=== PATIENT | female | born 1970 | race Caucasian/White ===

== ENCOUNTER 2017-03-08 23:27 | Emergency (ER) | payer OTHER ==
[2017-03-09 00:55] VITALS: BP 120/76
[2017-03-09] MEDS ORDERED: Acetaminophen TAB* 325 MG PO ONE (02:24)
--- NOTE | 2017-03-09 02:25 | ED ---
Lower Extremity - HPI Summary HPI Summary: Rolled Rt anle while walking down stiars - heard pop -has bruising and swelling. Sprained before - no n/t/w - worse w/ movement and weiht bearig, Tried 400mg ibuprofen prior to arrical, better w/ rest and eevaation. - History of Current Complaint Chief Complaint: EDExtremityLower Stated Complaint: RT ANKLE INJURY Time Seen by Provider: 03/09/17 00:58 Hx Obtained From: Patient Pain Intensity: 7 - Allergies/Home Medications Allergies/Adverse Reactions: Allergies Allergy/AdvReac Type Severity Reaction Status Date / Time Codeine Allergy Vomiting Verified 03/08/17 23:35 PMH/Surg Hx/FS Hx/Imm Hx Infectious Disease History: No Infectious Disease History: Denies: Traveled Outside the [place] in Last 30 Days Physical Exam Vital Signs On Initial Exam: Initial Vitals Temp Pulse Resp BP Pulse Ox 98.2 F 79 14 125/73 100 03/08/17 23:34 03/08/17 23:34 03/08/17 23:34 03/08/17 23:34 03/08/17 23:34 Diagnostics - Vital Signs Vital Signs Temp Pulse Resp BP Pulse Ox 03/09/17 00:47 98.8 F 77 120/76 99 03/08/17 23:34 98.2 F 79 14 125/73 100 - Laboratory Lab Statement: Any lab studies that have been ordered have been reviewed, and results considered in the medical decision making process. Lower Extremity Course/Dx - Course Course Of Treatment: XR does not appear to reveal fx or dislocation. RICE, crutches, NSAID's and f/u w/ ortho if pain perissts, - Diagnoses Provider Diagnoses: Right ankle sprain Discharge - Discharge Plan Condition: Stable Disposition: HOME Patient Education Materials: Ankle Sprain (ED), Crutch Instructions (ED), Ankle Stirrup Splint (ED) Referrals: Federico Parnell MD [Medical Doctor] - No Primary Care Phys,NOPCP [Primary Care Provider] - Additional Instructions: Rest, ice, compress with ELMER wrap and elevate Take ibuprofen 600mg every 6 hours as needed for pain No weight bearing - use crutches If pain persists for 1-2 weeks, follow-up with orthopedics.
--- NOTE | 2017-03-09 07:59 | RAD ---
INDICATION: Right ankle injury COMPARISON: None TECHNIQUE: AP, lateral, and oblique views were obtained. FINDINGS: There is lateral soft tissue swelling. There is a rounded ossific density adjacent to the lateral talus which may resent avulsion injury. The age is indeterminate. No other bony or soft tissue adenitis are noted. IMPRESSION: LATERAL SOFT TISSUE SWELLING. AGE INDETERMINANT AVULSION FROM THE LATERAL TALUS.
== END 2017-03-09 02:52 | disposition home or self-care (01) ==
LOC: ED 23:27
DX: S93.401A Sprain of unspecified ligament of right ankle, initial encounter (principal); X50.1XXA Overexertion from prolonged static or awkward postures, initial encounter; Y93.9 Activity, unspecified; Y92.9 Unspecified place or not applicable; Z88.5 Allergy status to narcotic agent
CPT/HCPCS: 99281; A9270-GY

== ENCOUNTER 2017-10-24 21:41 | Emergency (ER) | payer OTHER ==
[2017-10-24 22:11] VITALS: BP 145/84
[2017-10-24] MEDS ORDERED: Oseltamivir CAP* 75 MG CAP PO ONE (23:21)
--- NOTE | 2017-11-07 16:04 | UC ---
FLU HPI - HPI Summary HPI Summary: Patient to urgent care today with cough sore throat and fever for 3 days patient concerned because daughter was positive for influenza - History of Current Complaint Chief Complaint: UCRespiratory Stated Complaint: FLU Time Seen by Provider: 10/24/17 23:12 Hx Obtained From: Patient ?: No Onset/Duration: Sudden Onset Severity Currently: Mild Severity Initially: Mild Pain Intensity: 0 Pain Scale Used: 0-10 Numeric Associated Signs & Symptoms: Positive: Fever, Myalgia, Cough, Sore Throat, Nasal Congestion, Headache Related Hx: Possible Flu/Infectious Exposure - Allergy/Home Medications Allergies/Adverse Reactions: Allergies Allergy/AdvReac Type Severity Reaction Status Date / Time codeine Allergy Vomiting Verified 10/24/17 22:11 Home Medications: Home Medications Ibuprofen TAB* [Advil TAB*] 400 mg PO ONCE 10/24/17 [History Confirmed 10/24/17] PMH/Surg Hx/FS Hx/Imm Hx Previously Healthy: Yes Other History Of: Negative For: Anticoagulant Therapy - Surgical History Surgical History: None - Family History Known Family History: Positive: Other Family History: Daughter is positive for influenza - Social History Occupation: Employed Full-time Lives: With Family Alcohol Use: None Substance Use Type: None Smoking Status (MU): Never Smoked Tobacco Review of Systems Constitutional: Fever, Fatigue Skin: Negative Eyes: Negative ENT: Sore Throat, Ear Ache Respiratory: Cough Cardiovascular: Negative Gastrointestinal: Negative Genitourinary: Negative Motor: Negative Neurovascular: Negative Musculoskeletal: Arthralgia, Myalgia Neurological: Headache Psychological: Negative Is Patient Immunocompromised?: No All Other Systems Reviewed And Are Negative: Yes Physical Exam Triage Information Reviewed: Yes Appearance: Well-Nourished, Ill-Appearing - Mild, Pain Distress - Mild Vital Signs: Initial Vital Signs Temp 99.9 F 10/24/17 22:08 Pulse 93 10/24/17 22:08 Resp 18 10/24/17 22:08 BP 145/84 10/24/17 22:08 Pulse Ox 100 10/24/17 22:08 Vital Signs Reviewed: Yes Eye Exam: Normal Eyes: Positive: Conjunctiva Clear ENT Exam: Normal ENT: Positive: Normal ENT inspection, Hearing grossly normal, Pharynx normal, Nasal congestion, Uvula midline. Negative: Tonsillar swelling, Tonsillar exudate, Trismus, Hoarse voice, Dental tenderness, Sinus tenderness Dental Exam: Normal Neck exam: Normal Neck: Positive: Supple, Nontender, No Lymphadenopathy Respiratory Exam: Normal Respiratory: Positive: Chest non-tender, Lungs clear, Normal breath sounds, No respiratory distress, No accessory muscle use Cardiovascular Exam: Normal Cardiovascular: Positive: RRR, No Murmur, Pulses Normal, Brisk Capillary Refill Musculoskeletal Exam: Normal Musculoskeletal: Positive: Strength Intact, ROM Intact, No Edema Neurological Exam: Normal Neurological: Positive: Alert, Muscle Tone Normal Psychological Exam: Normal Skin Exam: Normal Diagnostics - Laboratory Diagnostic Studies Completed/Ordered: Patient is positive for influenza B negative for influenza a Flu Course/Dx - Course Course Of Treatment: Tamiflu 75 mg by mouth twice a day for 5 days increase fluids rest Tylenol or ibuprofen for pain and may use [id number] treatments for pain relief and symptom management follow up primary care provider or return as needed - Differential Dx/Diagnosis Provider Diagnoses: Influenza B Discharge - Discharge Plan Condition: Stable Disposition: HOME Prescriptions: Oseltamivir CAP* [Tamiflu CAP*] 75 mg PO BID #9 cap Patient Education Materials: Ibuprofen (By mouth), Influenza (ED), Hypertension (ED) Ref[place]: [facility] [place] [facility] [place]] - 1 Week
== END 2017-10-24 23:40 | disposition home or self-care (01) ==
LOC: UCEAST 21:41
DX: J10.1 Influenza due to other identified influenza virus with other respiratory manifestations (principal); Z88.5 Allergy status to narcotic agent
CPT/HCPCS: 87502; 99212; A9270-GY; G0463